=== PATIENT | female | born 1960 | race Caucasian/White ===

== ENCOUNTER 2016-12-03 13:27 | Emergency (ER) | payer SELFPAY ==
[~2016-12-03] VITALS: Ht 154.9 cm; Wt 62.5 kg
[2016-12-03 14:40] VITALS: BP 148/84; PULSE 78; RESP 18; TEMP 98.1; O2SAT 100
[2016-12-03 14:56] LABS: BLOOD, URINE NEG (NEG); GLUCOSE,URINE NEG (NEG); KETONE, URINE NEG (NEG); NITRITE,URINE NEG (NEG)
[2016-12-03 15:00] LABS: METHOD OF COLLECTION CLEAN CATCH; URINE COLOR STRAW (YELLW/STRAW)
[2016-12-03 15:01] LABS: COMMENT (UR) CULT NOT INDICATED; CULTURE IF INDICATED CULT NOT INDICATED; SQUAMOUS EPITHELIAL CELL URINE 0-5 /hpf (0-5); WBC, URINE 0-2 /hpf (0-5)
--- NOTE | 2016-12-03 15:40 | PD ---
HPI Chief Complaint: Back/ Neck Pain or Injury Time Seen by Provider: 15:37 Travel History International Travel<30 days: No Contact w/Intl Traveler<30days: No History of Present Illness HPI Patient comes in complaining of left-sided rib pain that began 2 days ago. Describes pain as sharp stabbing pain. Pain has been constant. Pain is worse with deep inspiration certain movement. Pain improves with lying on her right side. Patient denies any trauma, cough, shortness breath, chest pain, nausea or vomiting, abdominal pain, change in bowel or bladder, or fevers. Patient is taking ibuprofen and Tylenol with minimal to no relief of her symptoms. PFSH Past Medical History Congestive Heart Failure: Yes Cerebrovascular Accident: Yes Social History Tobacco Use: No Substance Use: No Allergies-Medications (Allergen,Severity, Reaction): Coded Allergies: No Known Allergies (Unverified , 12/03/16) Reported Meds & Prescriptions Reported Meds & Active Scripts Active Naprosyn (Naproxen) 500 Mg Tab 500 Mg PO Q12HR PRN Review of Systems Except as stated in HPI: all other systems reviewed are Neg Physical Exam Narrative GENERAL: Well-developed, overly nourished, in no acute distress, and non-ill appearing. SKIN: Focused skin assessment warm and dry. HEAD: Atraumatic. Normocephalic. EYES: Pupils equal and round. EOMI. No scleral icterus. No injection or drainage. ENT: No nasal bleeding or discharge. Mucous membranes pink and moist. NECK: Trachea midline. Supple. No nuclear rigidity. CARDIOVASCULAR: Regular rate and rhythm. No murmur appreciated. RESPIRATORY: No accessory muscle use. No respiratory distress. Clear to auscultation. Breath sounds equal bilaterally. Patient reports to palpation left lateral rib cage midaxillary. MUSCULOSKELETAL: No obvious deformities. No clubbing. No cyanosis. No edema. Full range of motion. NEUROLOGICAL: Awake and alert. No obvious cranial nerve deficits. Motor grossly within normal limits. Normal speech. PSYCHIATRIC: Appropriate mood and affect; insight and judgment normal. Data Data Last Documented VS Vital Signs Date Time Temp Pulse Resp B/P (MAP) Pulse Ox O2 Delivery O2 Flow Rate FiO2 12/03/16 14:40 98.1 78 18 148/84 (105) 100 Orders Orders Urinalysis - C+S If Indicated (12/03/16 14:47) Chest, Single Ap (12/03/16 ) Resp Incentive Spirometry (12/03/16 ) Labs Laboratory Tests Test 12/03/16 14:50 Urine Collection Type CLEAN CATCH Urine Color STRAW Urine Turbidity CLEAR Urine pH 7.0 Urine Specific [place] 1.005 Urine Protein NEG mg/dL Urine Glucose (UA) NEG mg/dL Urine Ketones NEG mg/dL Urine Occult Blood NEG Urine Nitrite NEG Urine Bilirubin NEG Urine Leukocyte Esterase NEG Urine WBC 0-2 /hpf Urine Squamous Epithelial Cells 0-5 /hpf Microscopic Urinalysis Comment CULT NOT INDICATED Urine Collection Time 14:50 [facility] Medical Decision Making Medical Screen Exam Complete: Yes Emergency Medical Condition: Yes Interpretation(s) Chest x-ray read by the radiologist shows: Negative for pneumothorax or displaced rib fracture. Subtle fractures cannot be excluded. Differential Diagnosis Renal calculi, pyelonephritis, pneumonia, pneumothorax, costochondritis, pleurisy, other Narrative Course Patient in no obvious distress upon re-evaluation. All pertinent Radiology result(s) discussed with patient. Patient was asked if they wanted to speak to my attending, which the patient did not wish to do at this time. Any questions/ concerns in reference to patient diagnosis/condition discussed and clarified prior to patient's discharge. Reinforced sheer importance of close follow up with patient's primary physician or primary care clinic. Instructed patient to return to ED immediately, if symptoms return/worsen. Pt showed understanding of above instructions. Further instructions and recommendations were detailed in discharge paperwork. Pt ambulated without difficulty out of ED at discharge. Diagnosis Primary Impression: Costochondritis, acute Patient Instructions: Costochondritis (ED), General Instructions Additional Instructions: Follow-up with your primary care physician 5 cm reevaluation. Take all medication as prescribed. Use incentive spirometer as instructed 10 times per hour to decrease his chance of pneumonia. Return to the emergency department if symptoms get worse. Med/Other Pt SpecificInfo: Prescription(s) given Scripts Naproxen (Naprosyn) 500 Mg Tab 500 MG PO Q12HR Y for PAIN SCALE 1 TO 10, #20 TAB 0 Refills Prov: Ranulfo Gutierrez MD 12/03/16 Disposition: 01 DISCHARGE HOME Condition: Stable Mansoor Carballo Dec 03, 2016 15:40
--- NOTE | 2016-12-03 15:59 | RADRPT ---
EXAM DATE/TIME: 12/03/2016 15:40 [facility] COMPARISON: No previous studies available for comparison. INDICATIONS : Chest pain. MEDICAL HISTORY : None. SURGICAL HISTORY : None. ENCOUNTER: Initial ACUITY: 4 - 6 days PAIN SCORE: 4/10 LOCATION: Left chest FINDINGS: A single view of the chest demonstrates the lungs to be symmetrically aerated without evidence of mas s, infiltrate or effusion. The cardiomediastinal contours are unremarkable. Osseous structures are intact. CONCLUSION: Negative for pneumothorax or displaced rib fracture. Subtle fractures cannot be excluded. Candido Daniels MD FACR on December 03, 2016 at 15:57 Board Certified Radiologist. This report was verified electronically.
[2016-12-03] MEDS ORDERED: NAPR500 PO (16:08)
== END 2016-12-03 16:25 | disposition home or self-care (01) ==
LOC: PHED 13:27
DX: M94.0 Chondrocostal junction syndrome [Tietze] (principal); I50.9 Heart failure, unspecified; Z86.73 Personal history of transient ischemic attack (TIA), and cerebral infarction without residual deficits
CPT/HCPCS: 71010; 81001; 94150; 99284